=== PATIENT | female | born 2000 | race African-American/Black ===

== ENCOUNTER 2021-03-12 17:04 | Emergency (ER) | payer OTHER ==
[2021-03-12 18:08] VITALS: BP 128/87; PULSE 73; RESP 20; TEMP 98
--- NOTE | 2021-03-12 18:45 | ED ---
Recheck HPI - General Chief Complaint: Recheck/Abnormal Lab/Rx Stated Complaint: COVID TEST Time Seen by Provider: 03/12/21 17:09 Source: patient Mode of arrival: ambulatory Limitations: no limitations - History of Present Illness Initial Comments: 20-year-old female presenting to emergency department for Covid testing. She needs this for interventional travel. No further complaints. - Related Data Allergies Allergy/AdvReac Type Severity Reaction Status Date / Time No Known Allergies Allergy Verified 03/12/21 18:08 Review of Systems ROS Statement: Those systems with pertinent positive or pertinent negative responses have been documented in the HPI. ROS Other: All systems not noted in ROS Statement are negative. Past Medical History Past Medical History: No Reported History History of Any Multi-Drug Resistant Organisms: None Reported Past Surgical History: No Surgical Hx Reported Past Psychological History: No Psychological Hx Reported Smoking Status: Never smoker Past Alcohol Use History: None Reported Past Drug Use History: None Reported General Exam Limitations: no limitations General appearance: alert, in no apparent distress Head exam: Present: normal inspection Eye exam: Present: normal appearance ENT exam: Present: normal exam Neck exam: Present: normal inspection Extremities exam: Present: normal inspection Back exam: Present: normal inspection Neurological exam: Present: alert, oriented X3 Psychiatric exam: Present: normal affect, normal mood Skin exam: Present: intact, normal color Course Vital Signs 03/12/21 18:06 Temperature 98 F Pulse Rate 73 Respiratory 20 Rate Blood Pressure 128/87 O2 Sat by Pulse 100 Oximetry Medical Decision Making - Medical Decision Making Negative Covid - Lab Data Lab Results 03/12/21 Range/Units 17:32 Coronavirus (PCR) Not Detected (Not Detectd) Disposition Clinical Impression: Lab test negative for COVID-19 virus Disposition: HOME SELF-CARE Condition: Stable Additional Instructions: Please return to the Emergency Department if symptoms worsen or any other concer ns. Is patient prescribed a controlled substance at d/c from ED?: No Referrals: None,Stated [Primary Care Provider] - 1-2 days Time of Disposition: 18:45
== END 2021-03-12 19:25 | disposition home or self-care (01) ==
LOC: EC 17:04
DX: Z20.822 Contact with and (suspected) exposure to COVID-19 (principal)
CPT/HCPCS: 87635; 99282